=== PATIENT | male | born 1990 | race African-American/Black ===

== ENCOUNTER 2020-02-04 18:40 | Emergency (ER) | payer MEDICAID ==
[~2020-02-04] VITALS: Ht 165.1 cm; Wt 70.0 kg
[2020-02-04 19:02] VITALS: BP 120/72
== END 2020-02-04 21:12 | disposition left against medical advice (07) ==
LOC: ER 18:40
DX: Z53.21 Procedure and treatment not carried out due to patient leaving prior to being seen by health care provider (principal)

== ENCOUNTER 2022-07-24 19:05 | Emergency (ER) | payer MEDICAID ==
[~2022-07-24] VITALS: Ht 165.1 cm; Wt 65.8 kg
[2022-07-24 22:16] VITALS: BP 128/78
== END 2022-07-24 22:18 | disposition home or self-care (01) ==
LOC: ER 19:05
DX: S81.801D Unspecified open wound, right lower leg, subsequent encounter (principal); Z88.0 Allergy status to penicillin; W34.09XD Accidental discharge from other specified firearms, subsequent encounter
CPT/HCPCS: 99281; Z7610